=== PATIENT | female | born 1945 | race Caucasian/White ===

== ENCOUNTER 2021-01-23 04:08 | Emergency (ER) | payer MEDICARE, OTHER ==
[~2021-01-23] VITALS: Ht 160 cm; Wt 88.5 kg
[~2021-01-23 04:08] MED LIST: ADVAIR 250-501 EACH; ANTIVERT25 MG PO; CITRACAL + D C1 EACH; DIOVAN HCT 80-1 EACH; FLUOXETINE HCL20 MG PO; LIMBREL 500 MG500 MG PO; LORCET 10-6501 EACH; METFORMIN HCL500 MG PO; MONTELUKAST SOD10 MG PO; NEXIUM20 MG PO; NEXIUM40 MG PO; PANTOPRAZOLE SO40 MG PO; PREDNISONE5 MG PO; STOOL SOFTENER1 EAC2; VENTOLIN HFA18 GM; ZOLPIDEM TARTRA10 MG PO
[2021-01-23] MEDS ORDERED: HYDROCODONE/APAP 5MG-325MG TAB PO ONE (04:45)
[2021-01-23] MEDS ORDERED: HYDROCODONE/APAP 5MG-325MG TAB ONE (04:47)
[2021-01-23] MEDS ORDERED: TETANUS/DIPHTHERIA TOX ADULT 0.5 ML SYR ONE (05:56)
[2021-01-23] MEDS ORDERED: TETANUS/DIPHTHERIA TOX ADULT 0.5 ML SYR IM ONE (06:00)
[2021-01-23 07:07] VITALS: BP 160/62
== END 2021-01-23 07:07 | disposition home or self-care (01) ==
LOC: ER 04:45
DX: S00.83XA Contusion of other part of head, initial encounter (principal); M25.562 Pain in left knee; W18.30XA Fall on same level, unspecified, initial encounter; Y93.01 Activity, walking, marching and hiking; Y92.008 Other place in unspecified non-institutional (private) residence as the place of occurrence of the external cause; E11.9 Type 2 diabetes mellitus without complications; J45.909 Unspecified asthma, uncomplicated; F32.9 Major depressive disorder, single episode, unspecified; Z87.442 Personal history of urinary calculi
CPT/HCPCS: 70450; 72125; 90471; 90714; 99283

== ENCOUNTER 2022-10-27 17:07 | Emergency (ER) | payer MEDICARE, OTHER ==
[~2022-10-27] VITALS: Ht 154.9 cm; Wt 74.4 kg
[2022-10-27] MEDS ORDERED: LISINOPRIL 10 MG TAB PO ONE (18:00)
[2022-10-27 18:11] LABS: BASOPHILS # (AUTO) 0.1 (0.0-0.1); BASOPHILS % 0.8 % (0.0-1.0); EOSINOPHILS # (AUTO) 0.1 (0.0-0.4); EOSINOPHILS % 1.4 % (0.0-6.0); HEMATOCRIT 46.8 % (34.2-44.1); HEMOGLOBIN 15.3 g/dL (12.0-16.0); LYMPHOCYTES # (AUTO) 2.5 (1.0-3.2); LYMPHOCYTES % 33.1 % (18.0-39.1); MEAN CORPUSCULAR HEMOGLOBIN 28.9 pg (28-32); MEAN CORPUSCULAR HGB CONC 32.7 g/dL (31-35); MEAN CORPUSCULAR VOLUME 88.3 fL (81-99); MONOCYTES # (AUTO) 0.5 (0.2-0.8); MONOCYTES % 6.6 % (4.4-11.3); NEUTROPHILS # (AUTO) 4.3 (2.1-6.9); PLATELET COUNT 151 x10e3/uL (140-360); RED CELL DISTRIBUTION WIDTH 12.9 % (11.7-14.4)
[2022-10-27 18:31] LABS: ALANINE AMINOTRANSFERASE 10 IU/L (0-55); ALBUMIN 4.4 g/dL (3.5-5.0); ALBUMIN/GLOBULIN RATIO 1.5 (0.8-2.0); ALKALINE PHOSPHATASE 35 IU/L (40-150); ANION GAP 14.1 mmol/L (8-16); BLOOD UREA NITROGEN 13 mg/dL (7-26); BUN/CREATININE RATIO 12 (6-25); CALCIUM 9.7 mg/dL (8.4-10.2); CARBON DIOXIDE 25 mmol/L (22-29); CHLORIDE 106 mmol/L (98-107); CREATINE KINASE 41 IU/L (29-168); GLUCOSE 86 mg/dL (74-118); POTASSIUM 4.1 mmol/L (3.5-5.1); SODIUM 141 mmol/L (136-145)
[2022-10-27] MEDS ORDERED: ZESTRIL10 MG PO (19:00)
[2022-10-27 19:16] VITALS: BP 166/98
== END 2022-10-27 19:18 | disposition home or self-care (01) ==
LOC: ER 17:14
DX: I10 Essential (primary) hypertension (principal); R94.31 Abnormal electrocardiogram [ECG] [EKG]
CPT/HCPCS: 36415; 71045; 80053; 82550; 82553; 83880; 84484; 85025; 93005; 99284